=== PATIENT | male | born 1995 | race Two or more races ===

== ENCOUNTER 2024-11-17 08:30 | Emergency (ER) | payer OTHER ==
[~2024-11-17] VITALS: Ht 167.6 cm; Wt 90.7 kg
[2024-11-17 10:03] LABS: HEMATOCRIT 41.1 % (39.0-48.0); HEMOGLOBIN 14.5 g/dL (13-16.00); MEAN CELL VOLUME 86.2 fL (80.0-100.00); MEAN CORPUSCULAR HEMOGLOBIN 30.4 pg (27.00-32.0); MEAN CORPUSCULAR HGB CONC 35.2 g/dl (32.0-36.0); PLATELET COUNT 199 K/uL (150-450); RED BLOOD COUNT 4.76 M/uL (4.00-6.00); RED CELL DISTRIBUTION WIDTH 13.5 % (11.5-14.5)
== END 2024-11-17 12:07 | disposition home or self-care (01) ==
LOC: ER 08:31
PROVIDERS: General Practice
DX: B34.9 Viral infection, unspecified (principal); R53.81 Other malaise; Z20.822 Contact with and (suspected) exposure to COVID-19

== ENCOUNTER 2025-02-12 23:22 | Emergency (ER) | payer OTHER ==
[~2025-02-12] VITALS: Ht 167.6 cm; Wt 93.4 kg
[2025-02-13] MEDS ORDERED: HYOSCYAMINE SULFATE 0.125 MG TAB.SUBL SL STA (00:21)
[2025-02-13] MEDS ORDERED: HYOSCYAMINE SULFATE 0.125 MG TAB.SUBL ONE (00:27)
[2025-02-13 00:52] LABS: HEMATOCRIT 40.6 % (39.0-48.0); MEAN CELL VOLUME 86.1 fL (80.0-100.00); MEAN CORPUSCULAR HEMOGLOBIN 29.7 pg (27.00-32.0); MEAN CORPUSCULAR HGB CONC 34.5 g/dl (32.0-36.0); PLATELET COUNT 236 K/uL (150-450); RED BLOOD COUNT 4.72 M/uL (4.00-6.00); RED CELL DISTRIBUTION WIDTH 12.3 % (11.5-14.5)
[2025-02-13 00:56] LABS: PH,URINE 5.5 (5.0-8.0); URINE APPEARANCE Clear; URINE BILIRRUBIN Negative (NEGATIVE); URINE BLOOD Negative; URINE COLOR Yellow; URINE GLUCOSE Negative (NEGATIVE); URINE KETONE Negative (NEGATIVE); URINE LEUKOCYTE Negative; URINE NITRATE Negative; URINE PROTEIN Negative (NEGATIVE); URINE UROBILINOGEN 0.2 E.U./dl
[2025-02-13 00:59] LABS: URINE BACTERIA 1.2 uL (0.0-1933); URINE CAST 0.14 uL (0.0-1.40); URINE WBC 0.2 uL (0.0-23.2)
[2025-02-13 01:05] LABS: ALBUMIN 3.6 gm/dL (3.4-5.0); BILIRUBIN TOTAL 0.41 mg/dL (0.3-1.2); BILIRUBIN,CONJUGATED 0.16 mg/dL (0.0-0.2); BILIRUBIN,UNCONJUGATED 0.25 mg/dL (0.0-0.6); CALCIUM 8.8 mg/dL (8.5-10.1); CREATININE SERUM 1.09 mg/dL (0.70-1.30); GFR 79.43; POTASSIUM 3.71 mEq/L (3.5-5.1); TOTAL PROTEIN 6.8 gm/dL (6.4-8.2)
[2025-02-13] MEDS ORDERED: PEPCID40 MG PO (04:42)
[2025-02-13] MEDS ORDERED: ZOFRAN8 MG PO (04:42)
[2025-02-13] MEDS ORDERED: LEVSIN/SL0.125 MG SL (04:42)
== END 2025-02-13 05:01 ==
LOC: ER 23:23
PROVIDERS: General Practice
DX: R10.13 Epigastric pain (principal); R10.11 Right upper quadrant pain; R10.9 Unspecified abdominal pain